=== PATIENT | female | born 1935 | race Caucasian/White ===

== ENCOUNTER → 2016-05-21 | Outpatient (CLI) | payer MEDICARE, BC ==
[~2016-05-21] MED LIST: ALLEGRA 180MG180 MG PO; DICLOFENAC NA25 MG PO; LEXAPRO10 MG PO; LIPITOR 10MG10 MG PO; SINGULAIR10 MG PO
== END ==
LOC: MC.RAD 10:15
DX: Z12.31 Encounter for screening mammogram for malignant neoplasm of breast (principal)

== ENCOUNTER → 2016-06-05 | Outpatient (CLI) | payer MEDICARE, BC | LOC: COL.PUL 10:00 | DX: R05 Cough (principal) ==

== ENCOUNTER → 2018-05-11 | Outpatient (CLI) | payer MEDICARE, BC | LOC: COL.RAD 12:38 | DX: M16.12 Unilateral primary osteoarthritis, left hip (principal) | CPT/HCPCS: J3301; Q9967 ==

== ENCOUNTER → 2018-09-24 | Outpatient (CLI) | payer MEDICARE, BC | LOC: MC.RAD 12:28 | DX: Z12.31 Encounter for screening mammogram for malignant neoplasm of breast (principal) ==

== ENCOUNTER 2022-05-22 13:19 | Inpatient (IN) | payer MEDICARE, BC ==
[~2022-05-22] VITALS: Ht 157.5 cm; Wt 89.2 kg
[2022-05-22 14:00] LABS: COLLECTION METHOD CLEAN CATCH
[2022-05-22 14:13] LABS: MUCOUS Present (NOT PRESENT); SQUAMOUS EPITHELIAL 0-2 /hpf (0-10); URINE BACTERIA Rare /hpf (NONE SEEN)
[2022-05-22 14:14] LABS: PH 5.5 (5.0-8.5); URINE APPEARANCE Clear (CLEAR/HAZY); URINE COLOR Amber (YELLOW); URINE GLUCOSE Negative (NEGATIVE); URINE KETONE Negative (NEGATIVE); URINE PROTEIN(semi-quant) 2+ (NEGATIVE); URINE UROBILINOGEN 0.2 E.U/dL (0.2-1.0)
[2022-05-22 14:15] LABS: URINE BLOOD 3+ (NEGATIVE); URINE NITRATE Positive (NEGATIVE)
[2022-05-22 15:17] LABS: BASO % 0.1 % (0.0-2.0); EOS # 0.1 K/mm3 (0.0-0.7); EOS % 0.6 % (0.0-4.0); GRAN # 18.9 K/mm3 (1.4-6.5); GRAN % 87.8 % (42.2-75.2); HEMATOCRIT 43.9 % (37.0-47.0); LYMPH # 0.8 K/mm3 (1.2-3.4); LYMPH % 3.6 % (20.0-51.0); MEAN CELL VOLUME 93 fl (80.0-100.0); MEAN CORPUSCULAR HEMOGLOBIN 30 pg (27-31); MEAN CORPUSCULAR HGB CONC 32 g/dl (33.0-37.0); MEAN PLATELET VOLUME 9.7 fl (7.4-10.4); MONO # 1.5 K/mm3 (0.1-0.6); MONO % 6.9 % (1.7-9.3); PLATELET COUNT 240 K/mm3 (130-400); RED BLOOD COUNT 4.73 M/mm3 (4.10-5.30)
[2022-05-22 15:39] LABS: ALBUMIN 2.9 gm/dL (3.4-4.8); CALCIUM 8.9 mg/dL (8.4-10.2); CREATININE, serum 0.73 mg/dL (0.57-1.11); POTASSIUM 3.7 mmol/L (3.5-4.5); TOTAL PROTEIN 6.2 gm/dL (6.2-8.1)
[2022-05-22 15:45] LABS: TROPONIN-I 0.01 ng/mL (0.00-0.033)
[2022-05-22 19:22] VITALS: BP 128/45; PULSE 98; TEMP 98.7
[2022-05-22 23:14] VITALS: BP 125/54; PULSE 113; TEMP 98.8
[2022-05-23] VITALS (7 sets, daily range): BP systolic 126–164; BP diastolic 68–76; PULSE 88–101; TEMP 98.5–98.9
[2022-05-23 06:41] LABS: BASO % 0.2 % (0.0-2.0); EOS % 0.2 % (0.0-4.0); GRAN # 13.3 K/mm3 (1.4-6.5); GRAN % 85.6 % (42.2-75.2); HEMATOCRIT 40.4 % (37.0-47.0); HEMOGLOBIN 13.2 g/dl (12.5-16.0); LYMPH % 6.3 % (20.0-51.0); MEAN CELL VOLUME 90 fl (80.0-100.0); MEAN CORPUSCULAR HEMOGLOBIN 29 pg (27-31); MEAN CORPUSCULAR HGB CONC 33 g/dl (33.0-37.0); MEAN PLATELET VOLUME 10.3 fl (7.4-10.4); MONO # 1.1 K/mm3 (0.1-0.6); PLATELET COUNT 228 K/mm3 (130-400); RED BLOOD COUNT 4.51 M/mm3 (4.10-5.30); REDCELL DISTRIBUTION WIDTH-CV 13.1 % (11.5-14.5)
[2022-05-23 06:54] LABS: CALCIUM 8.4 mg/dL (8.4-10.2); CREATININE, serum 0.62 mg/dL (0.57-1.11); POTASSIUM 3.3 mmol/L (3.5-4.5)
--- NOTE | 2022-05-23 08:05 | NUR ---
Assessment complete. A/O x4. Tele reading SR. INT LAC without s/s complications. Assisted patient with bed eden for urination. Pt reports 9-10/10 pain with any type of repositioning and screams out. Rates pain 7/10 at rest. No pain medications on board- will speak with hospitalist. Will also provide patient with mattress overlay to reduce pain. Pt agreeable.
--- NOTE | 2022-05-23 10:45 | NUR ---
Tramadol administered po for c/o pain- pt report that pain is unchanged since Tylenol earlier this am- still rating pain 11/11. Reports that her left shoulder is the most painful- lidocaine patch applied.
[2022-05-23] MEDS ORDERED: TYLENOL 500MG500 MG PO (11:03)
[2022-05-23] MEDS ORDERED: MULTIPLE VITAMI1 TA1 PO (11:04)
[2022-05-23] MEDS ORDERED: ARICEPT10 MG PO (11:05)
[2022-05-23] MEDS ORDERED: GLUCOSAMINE & C1 TAB PO (11:06)
[2022-05-23] MEDS ORDERED: EPIPEN 2-PAK1 MG/ML IM (11:06)
[2022-05-23] MEDS ORDERED: HAIRSKINNAILS PO (11:07)
[2022-05-23] MEDS ORDERED: MELATONIN5 M1 PO (11:09)
--- NOTE | 2022-05-23 11:43 | NUR ---
Med reconcilation completed. Referred to most recent printout from her primary care physican (February 2022) that family member provided. Eva reports that she has found a lot of medications in the home and feels that the patient isn't taking her medications as prescribed. Called [facility] to verify prescriptions and they report that she has not filled any of her prescriptions since 09/2021. Dr. Guy made aware of the situation and that the med rec has been updated. Pt resting in bed with eyes closed at this time.
--- NOTE | 2022-05-23 12:52 | NUR ---
Patient was able to stand by side of bed with assist x2 while mattress was being placed on bed. Pt rates pain 5/10 on scale and feels the Ultram was helpful. Family member still at bedside.
--- NOTE | 2022-05-23 13:24 | NUR ---
AN met with the patient and her friend, Mari, to discuss discharge plan. The patient lives alone in [place]. Mari provides that the patient has a walker and is independent with ADLs. Mari states that the patient has a lady that comes in to help with housekeeping and that the patient's cousin, Eva, comes in regularly to check in on the patient. Mari states that Eva will be coming in soon and will be able to answer AN's questions more accurately. The patient has a history of Alzheimer's Dementia. The patient's cousin, Eva Arguelles (ph#[phone]), then arrived to the patient's room. AN went to meet with Eva. Eva asked that she speak to this SW outside of the patient's room. Eva then began the discussion by stating, "Assisted Living and Long-term care need to be wiped from our vocabulary, when talking to the patient." Eva states that the patient fired her last primary care doctor, because he was suggesting or having discussions with the patient on this. She states that the patient's new PCP is Dr. Babita Rose. Eva confirms that the patient lives alone in a one level, handicap accessible [facility]. She has a dining room tables set up attendant from [facility] that comes in 5 hours a week for housekeeping. Eva also checks in on the patient and helps take care of the patient's dog. She states that the patient's dog is very aggressive and mean, so they try not to have new/unfamiliar people coming into the home. The patient does not have any other in home services at this time. Eva states that the patient does not have a DPOA-HC and that it designates her daughter, Brian Davenport (ph#[phone]). Eva states that doctors here may recommend SNF, but the patient will not want to do this. She states that the patient has the funds for them to hire more in home care. Eva states that she would also be willing to move into the patient's home, if needed. PT/OT have been ordered. Will await their evals. AN contacted Anat at Dr. Rose's office and requested a copy of the patient's DPOA-HC. Anat states that they do have it on file and will fax it to the medical unit. *Discharge plan: Undetermined at this time. Will await PT/OT evals*
--- NOTE | 2022-05-23 13:41 | NUR ---
[place] at bedside.
--- NOTE | 2022-05-23 14:47 | NUR ---
IVF d/c'd per MD order. Pt awake, visiting with family memeber at bedside. Reports improvement of pain with overlay mattress.
--- NOTE | 2022-05-23 15:26 | NUR ---
SW received the patient's DPOA-HC, via fax. SW placed the document in the patient's chart. The patient's DPOA-HC is her niece, Brian Davenport.
--- NOTE | 2022-05-23 18:35 | NUR ---
Therapy got patient up to chair this afternoon - patient sat up for several hours. Pt also ambulated to bathrooom x1 assist using walker. Pt now resting in bed. Report pain is minimal. Family member leaves for the evening.
[2022-05-24] VITALS (13 sets, daily range): BP systolic 119–159; BP diastolic 67–82; PULSE 79–98; TEMP 97.7–98.9
[2022-05-24 06:17] LABS: BASO % 0.2 % (0.0-2.0); EOS # 0.2 K/mm3 (0.0-0.7); EOS % 2.1 % (0.0-4.0); GRAN % 84.4 % (42.2-75.2); HEMATOCRIT 40.2 % (37.0-47.0); HEMOGLOBIN 12.5 g/dl (12.5-16.0); LYMPH # 0.6 K/mm3 (1.2-3.4); LYMPH % 5.5 % (20.0-51.0); MEAN CORPUSCULAR HEMOGLOBIN 30 pg (27-31); MEAN CORPUSCULAR HGB CONC 31 g/dl (33.0-37.0); MEAN PLATELET VOLUME 9.8 fl (7.4-10.4); MONO # 0.8 K/mm3 (0.1-0.6); MONO % 7.1 % (1.7-9.3); PLATELET COUNT 203 K/mm3 (130-400); RED BLOOD COUNT 4.24 M/mm3 (4.10-5.30); REDCELL DISTRIBUTION WIDTH-CV 12.8 % (11.5-14.5)
[2022-05-24 06:19] LABS: MEAN CELL VOLUME 95 fl (80.0-100.0)
[2022-05-24 06:34] LABS: ALBUMIN 2.4 gm/dL (3.4-4.8); BILIRUBIN,TOTAL 0.8 mg/dL (0.2-1.2); CALCIUM 8.6 mg/dL (8.4-10.2); CREATININE, serum 0.57 mg/dL (0.57-1.11); MAGNESIUM 1.9 mg/dL (1.6-2.6); POTASSIUM 3.8 mmol/L (3.5-4.5); TOTAL PROTEIN 5.7 gm/dL (6.2-8.1)
--- NOTE | 2022-05-24 10:12 | NUR ---
SHIFT ASSESSMENT COMPLETED AND MORNING MEDICATIONS ADMINISTERED PER ORDER. PATIENT IS ALERT AND PARTIALLY ORIENTED, SHE KNOWS HER NAME, DATE OF , AND THAT SHE IS IN THE HOSPITAL, HOWEVER, SHE DOES NOT KNOW THE CURRENT YEAR. LUNGS CTA. C/O GENERALIZED, MILD PAIN- TREATED WITH SCHEDULED APAP. PATIENT SWITCHED TO PO KEFLEX THIS MORNING, PER PATIENT, SHE THINKS SHE MAY BE ALLERGIC TO THIS MEDICATION BUT IS UNAWARE OF WHAT HER REACTION IS, AND DENIES HAVING ANAPHYLAXIS. KEFLEX ORDERED AND ADMINITERED PER ORDER, PATIENT DENIES ANY PRURITUS, SHORTNESS OF BREATH, OR OTHER SYMPTOMS AT THIS TIME. WILL CONTINUE TO MONITOR FOR ALLERGIC REACTION. FAMILY AT BEDSIDE WITH CONCERNS REGARDING DISCHARGE PLAN, SOCIAL WORK UPDATED.
--- NOTE | 2022-05-24 16:13 | NUR ---
PT is recommending home with increased support and supervision and home health. OT is recommending home with family assist and home health vs SNF. AN attended clinical rounds. The hospitalist discussed going to rehab with the patient. The patient declined and stated, "this is the end of this discussion." The clinical team would be ready to discharge the patient, once a safe discharge plan was set up. AN contacted the patient's DPOA-HC, Brian, to update. Brian states that they are aware the patient was going to want to return home. SW discussed the options of getting more services in the home set up vs SNF. Brian states that her mother, Eva, will be up to the hospital soon and they will discuss the options. Eva then arrived to the hospital. AN met with Eva. Eva states that she has already been in contact with [facility] and they should have everything set up for the patient to have companions at all times, starting on Friday. AN discussed the option of SNF, until this was set up. Eva talked to the patient and they were agreeable to look at the option of SNF at [facility]. The patient does have Medicare [employer] and would need auth for SNF. AN contacted and faxed a referral to Vignesh at [facility]. Awaiting screen. AN also faxed the patient's records to [facility] for auth on SNF. Eva then notified AN that they have a companions set up to provide supervision for the patient through [facility] during the day, starting on Friday and then family will stay over night with her. Eva states that the patient is not eating and would be interested in having help talking to the patient about palliative care/hospice. AN notified the hospitalist team. The hospitalist states the patient does not have a hospice diagnosis, but goals of care could be discussed. The palliative care team plans to re-evaluate the patient on Friday to have those discussions. *Discharge plan: likely home on Friday with 24/ supervision, family support, and home health*
[2022-05-25] VITALS (12 sets, daily range): BP systolic 124–138; BP diastolic 62–70; PULSE 85–94; TEMP 98–98.3
--- NOTE | 2022-05-25 12:54 | NUR ---
Child Welfare Assistant received telephone contact from Vignesh at [facility] following up on patient referral for discharge. Social Work notes awaiting [employer] authorization and palliative care team to discuss discharge plan on Friday. Vignesh is updated.
--- NOTE | 2022-05-25 13:22 | NUR ---
Airflight Attendants Supervisor rounds: Airflight Attendants Supervisor visit attempted. Patient was sleeping.
--- NOTE | 2022-05-25 14:05 | NUR ---
Eva, patient friend exits patient room to inquire Die Mechanic contacted patient DPOA-HC/Eva's daughter, to clarify patient plan of care. Ash informed of belief that patient would be transferred to a facility until HH care care be coordinated on Friday. Social Work confirms continued wait for insurance authorization and documented plan for care team meeting Friday with palliative care to confirm treatment goals. Ash supports plan for palliative care team meeting on Friday and requests it is scheduled between 11:00 and 13:00 that day so she can leave work at [employer] to attend. She is also possibly available by conference call if she cannot attend the meeting. Die Mechanic to forward this information to Friday's social work team and request follow up with Ash to schedule team meeting for discharge plan. Die Mechanic updated patient and friend Eva at bedside. Sanchez NARANJO updated.
--- NOTE | 2022-05-25 15:00 | NUR ---
PATIENT IS PLEASANTLY CONFUSED. CANNOT REMEMBER WHERE SHE IS AND DOES NOT REMEMBER THE NAME OF HER DOG OR THE BREED. VSS. PATIENT PULLED OUT HER IV BY MISTAKE; PROVIDER IS AWARE AND DOES NOT THINK THE PATIENT NEEDS IV ACCESS AT THIS TIME. SHE IS ONLY GETTING ORAL ABX. PATIENT CAN GET UP WITH ASSISTANCE USING THE WALKER. PLACEMENT PENDING; AIRLINE HOSTESS STATED THEY ARE WAITING TO SEE IF PATIENT WILL GO HOME WITH HOME HEALTH FRIDAY OR GO TO SNF.
[2022-05-26] VITALS (11 sets, daily range): BP systolic 121–154; BP diastolic 63–90; PULSE 73–95; TEMP 97.5–98.6
[2022-05-26 06:24] LABS: BASO % 0.4 % (0.0-2.0); EOS # 0.2 K/mm3 (0.0-0.7); EOS % 2.4 % (0.0-4.0); GRAN # 5.5 K/mm3 (1.4-6.5); GRAN % 69.4 % (42.2-75.2); HEMATOCRIT 39.5 % (37.0-47.0); HEMOGLOBIN 12.8 g/dl (12.5-16.0); LYMPH # 1.3 K/mm3 (1.2-3.4); LYMPH % 16.1 % (20.0-51.0); MEAN CORPUSCULAR HEMOGLOBIN 29 pg (27-31); MEAN CORPUSCULAR HGB CONC 32 g/dl (33.0-37.0); MEAN PLATELET VOLUME 10.1 fl (7.4-10.4); MONO # 0.9 K/mm3 (0.1-0.6); MONO % 11.3 % (1.7-9.3); PLATELET COUNT 242 K/mm3 (130-400); RED BLOOD COUNT 4.37 M/mm3 (4.10-5.30); REDCELL DISTRIBUTION WIDTH-CV 12.7 % (11.5-14.5)
[2022-05-26 06:35] LABS: MEAN CELL VOLUME 90 fl (80.0-100.0)
[2022-05-26 06:36] LABS: CALCIUM 8.6 mg/dL (8.4-10.2); CREATININE, serum 0.56 mg/dL (0.57-1.11); POTASSIUM 3.5 mmol/L (3.5-4.5)
--- NOTE | 2022-05-26 12:32 | NUR ---
PATIENT IS PLEASANT TODAY. REMAINS CONTINENT AND ASKS FOR SBA TO THE RESTROOM WITH WALKER. APPETITE IS STILL VERY MILD, BUT DOES CHOOSE FOODS OFF THE MENU. PATIENT REPORTS SHE HAS NOT HAD A BM IN A FEW DAYS; PRN MIRALAX ORDERED PER MD. VSS. WILL CONTINUE TO MONITOR.
--- NOTE | 2022-05-26 13:59 | NUR ---
SW informed that patient was not recommended for Palliative care and would need referrals sent to SNF. Previous note from 05/25/2022 stated for SW to call DPOA/HC to schedule palliative care meeting. Unable to reach DPOA to discuss recommendation of SNF per Dr. Guy. Friday SW will follow up on discharge planning with DPOA/HC. This SW sent referral to Yrn/PAULY/Chris just for review. SW will continue to follow.
[2022-05-27] VITALS (7 sets, daily range): BP systolic 102–152; BP diastolic 65–76; PULSE 84–91; TEMP 97.9–98.5
[2022-05-27 06:30] LABS: BASO % 0.3 % (0.0-2.0); EOS # 0.3 K/mm3 (0.0-0.7); EOS % 2.8 % (0.0-4.0); GRAN # 6.2 K/mm3 (1.4-6.5); GRAN % 68.9 % (42.2-75.2); HEMATOCRIT 39.9 % (37.0-47.0); HEMOGLOBIN 12.6 g/dl (12.5-16.0); LYMPH # 1.5 K/mm3 (1.2-3.4); MEAN CELL VOLUME 92 fl (80.0-100.0); MEAN CORPUSCULAR HEMOGLOBIN 29 pg (27-31); MEAN CORPUSCULAR HGB CONC 32 g/dl (33.0-37.0); MONO # 0.9 K/mm3 (0.1-0.6); MONO % 10.1 % (1.7-9.3); PLATELET COUNT 257 K/mm3 (130-400); RED BLOOD COUNT 4.35 M/mm3 (4.10-5.30); REDCELL DISTRIBUTION WIDTH-CV 12.9 % (11.5-14.5)
[2022-05-27 06:53] LABS: CALCIUM 8.7 mg/dL (8.4-10.2); CREATININE, serum 0.59 mg/dL (0.57-1.11); POTASSIUM 3.7 mmol/L (3.5-4.5)
--- NOTE | 2022-05-27 09:26 | NUR ---
Clinical updates sent to [place] at [facility]. Awaiting insurance auth.
--- NOTE | 2022-05-27 10:15 | NUR ---
A [facility] medicare sales representative contacted this SW with some follow up questions on the patient. The medicare sales representative states that they are still making their determination and will contact us back with their decision.
--- NOTE | 2022-05-27 12:48 | NUR ---
Yisel, with [facility], left his SW a voicemail. Yisel states that the patient was approved for SNF at [facility]. Auth ID#[id number]. Ref#[id number]. The patient was approved for 5 days with a start date on 05/24 and the next review date on 05/28.
--- NOTE | 2022-05-27 13:16 | NUR ---
Phone call made to the office of to notify of consult for capacity screen. No answer, message left. SW faxed referral to office as well.
[2022-05-28 00:02] VITALS: BP 146/72; PULSE 97; TEMP 97.5
[2022-05-28 04:20] VITALS: BP 136/65; PULSE 90; TEMP 98.9
[2022-05-28 06:38] LABS: BASO % 0.4 % (0.0-2.0); EOS # 0.2 K/mm3 (0.0-0.7); EOS % 2.2 % (0.0-4.0); GRAN # 7.5 K/mm3 (1.4-6.5); GRAN % 72.9 % (42.2-75.2); HEMATOCRIT 39.7 % (37.0-47.0); LYMPH # 1.5 K/mm3 (1.2-3.4); MEAN CELL VOLUME 90 fl (80.0-100.0); MEAN CORPUSCULAR HEMOGLOBIN 29 pg (27-31); MEAN CORPUSCULAR HGB CONC 33 g/dl (33.0-37.0); MEAN PLATELET VOLUME 9.8 fl (7.4-10.4); MONO # 0.9 K/mm3 (0.1-0.6); MONO % 8.6 % (1.7-9.3); PLATELET COUNT 295 K/mm3 (130-400); RED BLOOD COUNT 4.42 M/mm3 (4.10-5.30)
[2022-05-28 07:04] LABS: CALCIUM 8.6 mg/dL (8.4-10.2); CREATININE, serum 0.61 mg/dL (0.57-1.11)
[2022-05-28 08:00] VITALS: BP 131/62; PULSE 95; TEMP 98.5
--- NOTE | 2022-05-28 09:17 | NUR ---
SHIFT ASSESSMENT COMPLETED AND MORNING MEDICATIONS ADMINISTERED PER ORDER. PATIENT IS ALERT AND PARTIALLY ORIENTED. PATIENT KNOWS NAME, , AND LOCATION, BUT DOES NOT KNOW CURRENT YEAR. DENIES ANY PAIN. LIDOCAINE PATCH APPLIED TO RIGHT SHOULDER PER PATIENT REQUEST. DENIES NEEDS AT THIS TIME. CALL LIGHT WITHIN REACH.
[2022-05-28] MEDS ORDERED: CEPHALEXIN500 M1 PO (09:26)
[2022-05-28 11:00] VITALS: BP 131/62; PULSE 95; TEMP 98.5
--- NOTE | 2022-05-28 11:59 | NUR ---
PATIENT DISCHARGED PER ORDER TO [facility]. REPORT GIVEN TO SANTIAGO, WHO DENIES FURTHER QUESTIONS. NO IV ACCESS AT TIME OF DISCHARGE. PERSONAL BELONGINGS SENT WITH PATIENT. PATIENT TOILETED PRIOR TO DEPARTURE. DENIES ANY NEEDS OR PAIN AT THIS TIME.
--- NOTE | 2022-05-28 12:23 | NUR ---
Lease Administration Supervisor attended clinical rounds with the team and patient is ready for discharge today. AN met with patient and she is agreeable to discharge to [facility] for a short term rehab stay. Patient's goal is to return home. AN reviewed IM for with patient who verbalized understanding and provided signature. AN placed form in chart and provided copy to patient. AN contacted patient's DPOA-HCBrian and cousin, Eva to notify of discharge and plan for [facility]. AN faxed discharge orders to Vignesh at [facility]. Transport time set for 1130. Discharge Plan: [facility] SNF
== END 2022-05-28 12:00 | DRG 871 ==
LOC: COL.ER 13:19 → MEDICAL 18:14
PROVIDERS: Family Medicine; Physician Assistant; ADMIT Student in an Organized Health Care Education/Training Program
DX: A41.9 Sepsis, unspecified organism (principal); G93.41 Metabolic encephalopathy; N39.0 Urinary tract infection, site not specified; F05 Delirium due to known physiological condition; G30.9 Alzheimer's disease, unspecified; F02.80 Dementia in other diseases classified elsewhere, unspecified severity, without behavioral disturbance, psychotic disturbance, mood disturbance, and anxiety; Z20.822 Contact with and (suspected) exposure to COVID-19; F32.A Depression, unspecified; E78.5 Hyperlipidemia, unspecified; G93.89 Other specified disorders of brain; J30.2 Other seasonal allergic rhinitis; M25.511 Pain in right shoulder; M25.552 Pain in left hip; E87.6 Hypokalemia; G89.29 Other chronic pain; Z96.643 Presence of artificial hip joint, bilateral; Z88.8 Allergy status to other drugs, medicaments and biological substances; Z88.0 Allergy status to penicillin; Z88.2 Allergy status to sulfonamides; Z88.1 Allergy status to other antibiotic agents; Z91.030 Bee allergy status; Z23 Encounter for immunization
CPT/HCPCS: J0696; J1650; J7030